=== PATIENT | male | born 1980 ===

== ENCOUNTER 2024-07-02 11:00 | Day surgery (SDC) | payer OTHER ==
[2024-06-23 09:25] LABS: URINE APPEARANCE Clear; URINE BILIRRUBIN Negative (NEGATIVE); URINE BLOOD Negative; URINE COLOR Yellow; URINE GLUCOSE Negative (NEGATIVE); URINE KETONE Trace (NEGATIVE); URINE LEUKOCYTE Negative; URINE NITRATE Negative; URINE PROTEIN Negative (NEGATIVE); URINE UROBILINOGEN 0.2 E.U./dl
[2024-06-23 09:27] VITALS: BP 161/93
[2024-06-23 09:27] LABS: URINE WBC 2.9 uL (0.0-23.2)
[2024-06-23 09:30] LABS: URINE BACTERIA 2.4 uL (0.0-1933); URINE EPITHELIAL CELLS 0.7 uL (0.0-38.8); URINE RBC 0.1 uL (0.0-20.8)
[2024-06-23 09:34] LABS: HEMATOCRIT 41.1 % (39.0-48.0); HEMOGLOBIN 13.4 g/dL (13-16.00); MEAN CELL VOLUME 88.6 fL (80.0-100.00); MEAN CORPUSCULAR HGB CONC 32.7 g/dl (32.0-36.0); PLATELET COUNT 331 K/uL (150-450); RED BLOOD COUNT 4.64 M/uL (4.00-6.00); RED CELL DISTRIBUTION WIDTH 12.6 % (11.5-14.5)
[2024-06-23 10:01] LABS: INR 1.05; PARTIAL THROMBOPLASTIN TIME 28.5 SECONDS (22.0-34.0); PROTHROMBIN TIME 11.4 SECONDS (9.0-11.5)
[2024-06-23 10:32] LABS: BILIRUBIN TOTAL 1.33 mg/dL (0.3-1.2); CALCIUM 9.2 mg/dL (8.5-10.1); CREATININE SERUM 0.88 mg/dL (0.70-1.30); GFR 93.65; GLOBULINA 3.6 G/DL (2.4-3.5); POTASSIUM 4.5 mEq/L (3.5-5.1); TOTAL PROTEIN 7.6 gm/dL (6.4-8.2)
[~2024-07-02] VITALS: Ht 177.8 cm; Wt 104.3 kg
[~2024-07-02 11:00] MED LIST: AVAPRO150 MG; CARDIZEM30 MG PO; HYDRODIURIL12.5 MG; TEZSPIRE210 MG/1.9
[2024-07-02] MEDS ORDERED: CEFAZOLIN SODIUM 1,000 MG VIAL ONE (11:47)
[2024-07-02] MEDS ORDERED: BUPIVACAINE HCL/MPF 0.5% 30ML VIAL ONE (12:07)
[2024-07-02] MEDS ORDERED: LIDOCAINE HCL 1%/EPINEPHRINE 20ML VIAL IJ ONE ×2 (12:08→13:00)
[2024-07-02] MEDS ORDERED: VANCOMYCIN HCL 1,000 MG VIAL ONE (12:08)
[2024-07-02] MEDS ORDERED: CEFAZOLIN SODIUM 1,000 MG VIAL IV ONE (13:00)
[2024-07-02] MEDS ORDERED: BUPIVACAINE HCL 30 ML VIAL IJ ONE (13:00)
[2024-07-02] MEDS ORDERED: SUGAMMADEX SODIUM 200 MG/2 ML VIAL IV ONE ×2 (14:36→15:00)
[2024-07-02] MEDS ORDERED: MORPHINE SULFATE 4 MG/ML VIAL IV ONE ×2 (16:00→16:30)
== END 2024-07-02 17:15 | disposition home or self-care (01) ==
LOC: CIR.AMB 11:00
PROVIDERS: ATTEND Orthopaedic Surgery
DX: M75.122 Complete rotator cuff tear or rupture of left shoulder, not specified as traumatic (principal); M75.22 Bicipital tendinitis, left shoulder; M24.112 Other articular cartilage disorders, left shoulder; I10 Essential (primary) hypertension; J45.909 Unspecified asthma, uncomplicated; J32.9 Chronic sinusitis, unspecified